=== PATIENT | female | born 2000 | race Caucasian/White ===

== ENCOUNTER 2021-10-16 13:30 | Emergency (ER) | payer BC, MEDICAID, SELFPAY ==
[2021-10-16 13:41] VITALS: BP 122/84; PULSE 68; RESP 20; TEMP 36.7; O2SAT 100; BMI 20.7
--- NOTE | 2021-10-16 14:13 | CRLHL7_ITS ---
For Patients: As a result of the Century Cures Act, medical imaging exams and procedure reports are released immediately into your electronic medical record. You may view this report before your referring provider. If you have questions, please contact your health care provider. INDICATION: Abdominal pain, vomiting, diarrhea. TECHNIQUE: CT of the abdomen and pelvis with 63 cc Isovue 370 IV contrast. Coronal and sagittal reconstructions. COMPARISON: None. FINDINGS: The liver, gallbladder, spleen, pancreas, and adrenal glands are negative. No biliary dilation. Hepatic and portal veins are patent. Symmetric enhancement of the kidneys. No hydronephrosis or ureteral dilation. No obstructing urinary calculi identified. Decompressed urinary bladder. The uterus is normal in appearance. No adnexal mass. No bowel dilation. There is mild wall thickening/increased fold pattern of small bowel loops in the left abdomen suggesting a nonspecific enteritis. No significant stool burden. Low-lying transverse colon located in the pelvis. Negative appendix. Trace free fluid in the pelvis may be physiologic. No intraperitoneal free air. No lymphadenopathy. Multiple small endplate Schmorl`s nodes in the lumbar spine. The lung bases are clear. IMPRESSION: 1. Mild wall thickening/increased fold pattern of small bowel loops in the left abdomen suggesting a nonspecific enteritis. 2. Small amount of free fluid in the pelvis may be physiologic. 3. No other acute findings in the abdomen or pelvis. Please note that all CT scans at this facility use dose modulation, iterative reconstruction, and/or weight-based dosing when appropriate to reduce radiation dose to as low as reasonably achievable. Dictated by Linda Curtis MD @ 10/16/2021 4:28:28 PM (Electronically Signed)
--- NOTE | 2021-10-16 14:15 | ED_ITS ---
HPI - Abdominal Pain General Chief Complaint: Abdominal Pain Stated Complaint: Period Pain/Vomiting/Diarrhea Time Seen by Provider: 10/16/21 13:32 History of Present Illness HPI narrative: This 21-year-old female comes in reporting lower abdominal pain. She states that she is currently menstruating and has diarrhea and vomiting that typically accompanies her menses. Today she had rather sudden onset of very intense pain that is now dissipated somewhat. She has had an ovarian cyst in the past however a pelvic ultrasound did not specifically identify this. It was a clinical diagnosis as she had sudden severe pain that resolved. She has been to a OBGYN clinic and there was suspicion of endometriosis. She was recommended to have laparoscopy which she has not done. She does state that she typically has more symptomatic menses. She was on control but discontinued this a couple years ago as she did not care for how it made her feel. She did not have any menses at the time she was on control. She denies likelihood of but states that a could be possible. She has not had any fevers. Other than this she has been in good health. Related Data Previous Rx's Medication Instructions Recorded ketorolac 10 mg tablet 10 mg PO Q8H 5 days #15 tabs 10/16/21 ondansetron HCl 4 mg tablet 4 mg PO Q6H #20 tabs 10/16/21 Allergies Allergy/AdvReac Type Severity Reaction Status Date / Time No Known Drug Allergies Allergy Verified 10/16/21 13:47 Review of Systems Status of ROS Reports: 10 or more systems reviewed and unremarkable except as noted in History and below Narrative Constitutional: No fevers, no weight gain or loss. Eyes: No discharge. No vision changes. HENT: No congestion, no sore throat, no ear pain. Cardiovascular: No chest pain, no palpitations. Respiratory: No shortness of breath, no wheezes, no cough. Gastrointestinal: Lower abdominal pain with vomiting and diarrhea. Pain is worse with movement. Genitourinary: No dysuria, no hematuria. Musculoskeletal: Normal range of motion. Skin: No rashes, no pruritis. Neurological: No dizziness, weakness, sensory change, speech change. Endo/Heme/Allergies: No bruising or bleeding. No polydipsia. Pysch: no suicidality, no anxiety, no insomnia. All other systems reviewed and are negative. PFSH PFSH Social History Smoking Status: Former smoker Do you use any of these nicotine containing products: None Second hand tobacco smoke exposure: No How often do you have a drink containing alcohol: never AUDIT-C Alcohol total score: 0 Non-prescribed substance use: denies use Exam Narrative: Exam Narrative: Constitutional: Well-developed, well-nourished, no acute distress. HEENT: Normocephalic, atraumatic. Neck: Normal range of motion. Nontender. Supple. Heart: Regular. No murmurs. Normal rate. Intact distal pulses. Lungs: Clear to auscultation. No chest discomfort. No wheezes, rhonchi, or rales. Abdomen: Pain in the lower abdomen. Bowel sounds are decreased. Rebound tenderness is present. Genitalia: Deferred. Back: No midline tenderness. Normal range of motion. Extremities: Normal range of motion. No injury. Skin: Intact. No rash. Warm. No erythema or pallor. Neurologic: No altered sensation. No weakness. Alert and oriented. Psychiatric: No suicidality. No anxiety or depression. No insomnia. Nursing notes and vitals signs are reviewed. Const: Vital Signs, click to edit/add: Vital Signs - 24 hr 10/16/21 13:41 10/16/21 14:58 10/16/21 16:02 Temperature 98.0 F Pulse Rate [Right Pulse Oximeter] 68 70 59 L Respiratory Rate 20 12 12 Blood Pressure [Ri ght Upper Arm] 122/84 110/55 L Pulse Oximetry 100 100 99 Oxygen Delivery Me thod Room Air Room Air Course Vital Signs Vital signs: Initial Vital Signs Temperature 98.0 F 10/16/21 13:41 Temperature Source Temporal Artery Scan 10/16/21 13:41 Pulse Rate 68 10/16/21 13:41 Respiratory Rate 20 10/16/21 13:41 Blood Pressure 122/84 10/16/21 13:41 Blood Pressure Mean 96 10/16/21 13:41 Blood Pressure Position Sitting 10/16/21 13:41 Pulse Oximetry 100 10/16/21 13:41 Oxygen Delivery Method 10/16/21 13:41 Vital Signs Temperature 98.0 F 10/16/21 13:41 Pulse Rate 68 10/16/21 13:41 Respiratory Rate 20 10/16/21 13:41 Blood Pressure 122/84 10/16/21 13:41 Pulse Oximetry 100 10/16/21 13:41 Oxygen Delivery Method 10/16/21 13:41 Temperature 98.0 F 10/16/21 13:41 Pulse Rate 59 L 10/16/21 16:02 Respiratory Rate 12 10/16/21 16:02 Blood Pressure 110/55 L 10/16/21 16:02 Pulse Oximetry 99 10/16/21 16:02 Oxygen Delivery Method 10/16/21 14:58 MDM - Abdominal Pain MDM Narrative Medical decision making narrative: This patient comes in with severe abdominal pain as described above. She did have an episode of vomiting after arrival here and did receive an IV dose of Zofran. She stated however that her pain had improved from being more intense earlier. I discussed lab and imaging options with the patient and her significant other and they did elect to have a CT scan with IV contrast. After finding that her status is negative this was done in returns with rather normal findings and nothing specific to explain her pain. She may have had a ruptured ovarian cyst that is no longer observable as there is little bit of free fluid in the cul-de-sac. Lab results also returned with reassuring findings. She has some microscopic blood in her urine but is currently menstruating. I advised her to follow-up with an OBGYN physician for further evaluation and treatment as she is having recurrent symptoms in may be exhibiting symptoms of endometriosis. She did received prescriptions for Toradol and Zofran. She states that the end of her visit here that she is not having any pain at all in her abdomen. Lab Data Labs: Lab Results 10/16/21 10/16/21 10/16/21 Range/Units 14:25 14:41 14:45 WBC 12.59 H (4.50-11.00) K/uL RBC 4.07 (4.00-5.20) m/uL Hgb 13.4 (12.0-16.0) gm/dL Hct 38.0 (33.0-51.0) % MCV 93 (80-100) fL MCH 33 (26-34) pg MCHC 35 (32-36) gm/dL RDW Coeff of Julianne 11.7 (11.5-15.5) % Plt Count 213 (140-440) K/uL Neut % (Auto) 87.6 H (42.0-72.0) % Lymph % (Auto) 8.9 L (20-44) % [place] % (Auto) 3.2 (0.0-11.0) % Eos % (Auto) 0.1 (0.0-7.0) % Baso % (Auto) 0.1 (0.0-3.0) % Neut # (Auto) 11.00 H (1.7-7.0) K/uL Lymph # (Auto) 1.10 (0.90-2.90) K/uL [place] # (Auto) 0.40 (0.00-0.90) K/UL Eos # (Auto) 0.00 (0.00-0.50) K/uL Baso # (Auto) 0.00 (0.00-0.30) K/uL Abs Immat Gran (auto) 0.01 (0.00-0.30) K/uL Sodium (135-149) mmol/L Potassium (3.6-5.1) mmol/L Chloride (96-114) mmol/L Carbon Dioxide (20-32) mmol/L BUN (5-24) mg/dL Creatinine (0.5-1.5) mg/dL Estimated Creat Clear Estimated GFR ml/min Glucose (60-115) mg/dL Calcium (8.4-10.6) mg/dL HCG, Qual Negative (Negative) Urine Color Yellow (Yellow) Urine Appearance Clear (Clear) Urine pH 5.5 (5.0-8.5) Ur Specific [place] >= 1.030 (1.000-1.030) Urine Protein Negative (Negative) Urine Glucose (UA) Negative (Negative) Urine Ketones 1+ A (Negative) Urine Blood 2+ A (Negative) Urine Nitrite Negative (Negative) Urine Bilirubin Negative (Negative) Urine Urobilinogen 0.2 (0.2-1.0) Ur Leukocyte Esterase Negative (Negative) Urine RBC 5-10 A (0-2) Urine WBC 0-2 (0-5) Ur Squamous Epith Cells Few (None-Few) Urine Bacteria None (None) 10/16/21 Range/Units 14:45 WBC (4.50-11.00) K/uL RBC (4.00-5.20) m/uL Hgb (12.0-16.0) gm/dL Hct (33.0-51.0) % MCV (80-100) fL MCH (26-34) pg MCHC (32-36) gm/dL RDW Coeff of Julianne (11.5-15.5) % Plt Count (140-440) K/uL Neut % (Auto) (42.0-72.0) % Lymph % (Auto) (20-44) % [place] % (Auto) (0.0-11.0) % Eos % (Auto) (0.0-7.0) % Baso % (Auto) (0.0-3.0) % Neut # (Auto) (1.7-7.0) K/uL Lymph # (Auto) (0.90-2.90) K/uL [place] # (Auto) (0.00-0.90) K/UL Eos # (Auto) (0.00-0.50) K/uL Baso # (Auto) (0.00-0.30) K/uL Abs Immat Gran (auto) (0.00-0.30) K/uL Sodium 137 (135-149) mmol/L Potassium 3.8 (3.6-5.1) mmol/L Chloride 104 (96-114) mmol/L Carbon Dioxide 25 (20-32) mmol/L BUN 13 (5-24) mg/dL Creatinine 0.6 (0.5-1.5) mg/dL Estimated Creat Clear 133.66 Estimated GFR 129 ml/min Glucose 99 (60-115) mg/dL Calcium 9.1 (8.4-10.6) mg/dL HCG, Qual (Negative) Urine Color (Yellow) Urine Appearance (Clear) Urine pH (5.0-8.5) Ur Specific [place] (1.000-1.030) Urine Protein (Negative) Urine Glucose (UA) (Negative) Urine Ketones (Negative) Urine Blood (Negative) Urine Nitrite (Negative) Urine Bilirubin (Negative) Urine Urobilinogen (0.2-1.0) Ur Leukocyte Esterase (Negative) Urine RBC (0-2) Urine WBC (0-5) Ur Squamous Epith Cells (None-Few) Urine Bacteria (None) Imaging Data CT scan - abdomen: Radiologist's impression: 1. Mild wall thickening/increased fold pattern of small bowel loops in the left abdomen suggesting a nonspecific enteritis. 2. Small amount of free fluid in the pelvis may be physiologic. 3. No other acute findings in the abdomen or pelvis. Discharge Plan Discharge Clinical Impression: Abdominal pain Condition: Improved Instructions: Abdominal Pain (ED) Prescriptions: New ondansetron HCl 4 mg tablet 4 mg PO Q6H Qty: 20 0RF ketorolac 10 mg tablet 10 mg PO Q8H 5 Days Qty: 15 0RF Follow Up/Referrals: Provider,Not a Local [Primary Care Provider] - Stand Alone Forms: [employer] Info Instructions
[2021-10-16 14:37] LABS: Appearance Urine Clear (Clear); Bilirubin Urine Negative (Negative); Blood Urine 2+ (Negative); Color Urine Yellow (Yellow); Glucose Urine Negative (Negative); Ketones Urine 1+ (Negative); Leukocyte Esterase Urine Negative (Negative); Nitrite Urine Negative (Negative); Protein Urine Negative (Negative); Specific Gravity Urine >= 1.030 (1.000-1.030); Urobilinogen Urine 0.2 (0.2-1.0); pH Urine 5.5 (5.0-8.5)
[2021-10-16 14:48] LABS: HCG Qualitative* Negative (Negative)
[2021-10-16 14:50] LABS: Squamous Epithelial Cell Urine Few (None-Few); WBC Urine 0-2 (0-5)
[2021-10-16] MEDS: KETOROLAC 30 MG/ML inj IVP (14:52)
[2021-10-16] MEDS: ONDANSETRON 2 MG/ML inj 4 MG IVP (14:52)
[2021-10-16 14:58] VITALS: PULSE 70; RESP 12; O2SAT 100
[2021-10-16 15:08] LABS: Chloride* 104 mmol/L (96-114); Potassium* 3.8 mmol/L (3.6-5.1); Sodium* 137 mmol/L (135-149)
[2021-10-16 15:10] LABS: Creatinine* 0.6 mg/dL (0.5-1.5); Est. Creatinine Clearance* 133.66; Estimated Glomerular Filt Rate 129 ml/min
[2021-10-16 15:11] LABS: Blood Urea Nitrogen* 13 mg/dL (5-24); Calcium* 9.1 mg/dL (8.4-10.6); Carbon Dioxide* 25 mmol/L (20-32); Glucose* 99 mg/dL (60-115)
[2021-10-16 15:29] LABS: Basophils Percent Auto 0.1 % (0.0-3.0); Eosinophils Percent Auto 0.1 % (0.0-7.0); Hemoglobin* 13.4 gm/dL (12.0-16.0); Immature Granulocytes Abs Auto 0.01 K/uL (0.00-0.30); Lymphocytes Percent Auto 8.9 % (20-44); Mean Corpuscular HGB Conc 35 gm/dL (32-36); Mean Corpuscular Hemoglobin 33 pg (26-34); Mean Corpuscular Volume 93 fL (80-100); Monocytes Percent Auto 3.2 % (0.0-11.0); Neutrophils Percent Auto 87.6 % (42.0-72.0); Platelet Count* 213 K/uL (140-440); RDW Coefficient of Variation % 11.7 % (11.5-15.5); Red Blood Count 4.07 m/uL (4.00-5.20); White Blood Count* 12.59 K/uL (4.50-11.00)
[2021-10-16 15:37] LABS: Slide Review Reflex No
[2021-10-16 16:02] VITALS: BP 110/55; PULSE 59; RESP 12; O2SAT 99
== END 2021-10-16 17:00 | disposition home or self-care (01) ==
PROVIDERS: Emergency Provider Emergency Medicine Emergency Medical Services
DX: R10.9 Unspecified abdominal pain (principal); R11.0 Nausea
CPT/HCPCS: 36415; 74177; 80048; 81001; 84703; 85025; 96374; 96375; 99284; J1885; J2405; Q9967

== ENCOUNTER 2023-10-29 23:06 | Emergency (ER) | payer MEDICAID, SELFPAY ==
[2023-10-29 23:16] VITALS: BP 107/78; PULSE 79; RESP 18; TEMP 37.1; O2SAT 100; BMI 20.2
--- NOTE | 2023-10-29 23:35 | ED.EYEPROB ---
HPI - Eye Problem General Chief complaint: Eye Problems Stated complaint: Allergic reaction--face swelling Time Seen by Provider: 10/29/23 23:15 History of Present Illness HPI Narrative: This 23-year-old female comes in reporting some swelling of the eyelid over her right eye. This came on about an hour prior to arrival. 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 She came in today and rubbed her eye because it was irritated. She also took a shower. Her right eye began to swell up and she had a brief episode of feeling like her breathing was tight and generalized pruritus. She took a Claritin and these symptoms have resolved except the swelling of her right eyelid persists. She states that she has had episodes of brief tightness in her breathing and pruritus in the past and these have responded when taking Claritin. She does not report any discharge from right eye. She does not feel like there is any foreign object present. She does wear contacts. She states that there is some minimal discomfort. She is able to open her eye a little bit but is less able to do so because of the swelling of her upper and lower eyelids. Related Data Previous Rx's ?Medication ?Instructions ?Recorded olopatadine 0.1 % eye drops 1 drp ophthalmic (eye) BID #5 mL 10/29/23 Allergies Allergy/AdvReac Type Severity Reaction Status Date / Time No Known Drug Allergies Allergy Verified 10/29/23 23:19 Review of Systems Status of ROS: Reports: 10 or more systems reviewed and unremarkable except as noted in History and below Narrative: Constitutional: No fevers, no weight gain or loss. Eyes: No discharge. No vision changes. Swelling of the right eyelid as described above. HENT: No congestion, no sore throat, no ear pain. Cardiovascular: No chest pain, no palpitations. Respiratory: No shortness of breath, no wheezes, no cough. Gastrointestinal: No abdominal pain, no vomiting, no diarrhea. Genitourinary: No dysuria, no hematuria. Musculoskeletal: Normal range of motion. Skin: No rashes. Neurological: No dizziness, weakness, sensory change, speech change. Endo/Heme/Allergies: No bruising or bleeding. No polydipsia. Pysch: no suicidality, no anxiety, no insomnia. All other systems reviewed and are negative. PFSH PFSH Social History Smoking Status: Former smoker Do you use any of these nicotine containing products: None Second hand tobacco smoke exposure: No How often do you have a drink containing alcohol: never AUDIT-C Alcohol total score: 0 Non-prescribed substance use: denies use Exam Narrative: Exam Narrative: Constitutional: Well-developed, well-nourished, no acute distress. HEENT: Normocephalic, atraumatic. The tissue involving her right eyelid both upper and lower have some swelling such that she is able to open her right eye a little bit. I did examine her eye and saw no sign of foreign object. Her sclera was not injected. There is no sign of discharge ir extra tearing. Neck: Normal range of motion. Nontender. Supple. Heart: Intact distal pulses. Lungs: No chest discomfort. No wheezes, rhonchi, or rales. Abdomen: Nontender. Back: Normal range of motion. Extremities: Normal range of motion. No injury. Skin: Intact. No rash. Warm. No erythema or pallor. Neurologic: No altered sensation. No weakness. Alert and oriented. Psychiatric: No suicidality. No anxiety or depression. No insomnia. Nursing notes and vitals signs are reviewed. Const: Vital Signs, click to edit/add: Vital Signs - 24 hr 10/29/23 23:16 10/29/23 23:37 Temperature 98.8 F 98.4 F Pulse Rate [Right Pulse Oximeter] 79 89 Respiratory Rate 18 18 Blood Pressure [Ri ght Upper Arm] 107/78 107/78 Pulse Oximetry 100 99 Oxygen Delivery Me thod Room Air Room Air Course Vital Signs Vital signs: Initial Vital Signs Temperature 98.8 F 10/29/23 23:16 Temperature Source Temporal Artery Scan 10/29/23 23:16 Pulse Rate 79 10/29/23 23:16 Respiratory Rate 18 10/29/23 23:16 Blood Pressure 107/78 10/29/23 23:16 Blood Pressure Mean 87 10/29/23 23:16 Blood Pressure Position Sitting 10/29/23 23:16 Pulse Oximetry 100 10/29/23 23:16 Oxygen Delivery Method Room Air 10/29/23 23:16 Vital Signs Temperature 98.8 F 10/29/23 23:16 Pulse Rate 79 10/29/23 23:16 Respiratory Rate 18 10/29/23 23:16 Blood Pressure 107/78 10/29/23 23:16 Pulse Oximetry 100 10/29/23 23:16 Oxygen Delivery Method Room Air 10/29/23 23:16 Temperature 98.4 F 10/29/23 23:37 Pulse Rate 89 10/29/23 23:37 Respiratory Rate 18 10/29/23 23:37 Blood Pressure 107/78 10/29/23 23:37 Pulse Oximetry 99 10/29/23 23:37 Oxygen Delivery Method Room Air 10/29/23 23:37 MDM - Eye Problem MDM Narrative Medical decision making narrative: This patient comes in with concern about her right eyelids being swollen. 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 She has had allergy symptoms on occasion in the past and generally has benefited by taking Claritin when such symptoms arise. She did take Claritin prior to arrival and all symptoms are resolved except she continues to have some swelling of her right eyelids. Her airway is intact and she is not showing any rash or pruritus symptoms. The patient did receive an oral dose of dexamethasone 10 mg. I also provided a prescription for olopatadine eyedrops. I encouraged the patient to take an oral antihistamine such as Claritin or Elsie regularly as needed. Discharge Plan Discharge Clinical Impression: Acute allergic conjunctivitis of right eye Patient Disposition: Home, Self-Care Condition: Improved Additional Instructions: Use eyedrops as needed and indicated. I recommend using an oral antihistamine regularly as needed also. Follow up with MD or return if worsening. Prescriptions: New olopatadine 0.1 % drops 1 drp ophthalmic (eye) BID Qty: 5 0RF Rx Instructions: separate doses by at least 6-8 hours Follow Up/Referrals: Provider,Not a Local [Primary Care Provider] - Stand Alone Forms: [employer] Info Instructions
[2023-10-29 23:37] VITALS: BP 107/78; PULSE 89; RESP 18; TEMP 36.9; O2SAT 99
[2023-10-29] MEDS: dexAMETHasone 10 MG/ML inj PO (23:46)
[2023-10-30 00:25] VITALS: BP 107/78; PULSE 89; RESP 18; TEMP 36.9
== END 2023-10-30 00:25 | disposition home or self-care (01) ==
PROVIDERS: Emergency Provider Emergency Medicine Emergency Medical Services; PCP Family Medicine
DX: H10.11 Acute atopic conjunctivitis, right eye (principal)
CPT/HCPCS: 99283; 99284; J1100